=== PATIENT | male | born 1990 | race Caucasian/White ===

== ENCOUNTER 2018-02-16 13:48 | Emergency (ER) | payer OTHER ==
[~2018-02-16] VITALS: Ht 177.8 cm; Wt 70.3 kg
[~2018-02-16 13:48] MED LIST: CARAFATE1 GM/10 ML PO; INDOCIN25 MG PO; PEPCID 20MG TAB20 MG PO; PROTONIX 40MG T40 MG PO
[2018-02-16 13:56] VITALS: BP 124/85
--- NOTE | 2018-02-16 17:06 | ED UPPER/LOWER EXTREMITY COMPL ---
History of Present Illness General Chief Complaint: Laceration Procedure Stated Complaint: R INDEX FINGER LAC WORK INJURY Source: patient Exam Limitations: no limitations Vital Signs & Intake/Output Vital Signs & Intake/Output Vital Signs Date Time Temp Pulse Resp B/P B/P Pulse O2 O2 Flow FiO2 Mean Ox Delivery Rate 02/16 1356 97.8 91 18 124/85 96 Room Air Allergies Coded Allergies: NO KNOWN ALLERGIES (03/29/14) Reconcile Medications Famotidine (Pepcid 20MG Tab) 20 MG TAB 1 TAB PO BID GERD Indomethacin (Indocin) 25 MG CAP 1 TAB PO TID PERICARDITIS (HEART HEALTH) TAKE WITH MEALS Pantoprazole Sodium (Protonix) 40 MG TABLET.DR 1 TAB PO DAILY GASTRITIS Sucralfate (Carafate) 1 GRAM/10 ML ORAL.SUSP 10 ML PO TID STOMACH IRRITATION 1 hour before meals Triage Note: PT TO ER C/C 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 STATES LAST TETANUS > 10 YEARS AGO. DRESSING APPLIED, BLEEDING CONTROLLED Triage Nurses Notes Reviewed? yes Onset: Abrupt Duration: constant Timing: single episode today Severity: moderate Severity Numbers: 5 HPI: Patient is a 27-year-old male who presents emergency stating that while at work today he accidentally struck with an X-[employer] knife that this last active his right second digit index finger causing a laceration in which bleeding was controlled prior to arrival. (James Watkins) Past History Travel History Traveled to [place] past 21 day No Medical History Any Pertinent Medical History? none Surgical History Surgical History: non-contributory Psychosocial History Who do you live with Family What is your primary language Malawian Tobacco Use: Quit <30 days ago Family History Family History, If Any: No Known Family History. Hx Contributory? No (James Watkins) Review of Systems Review of Systems Constitutional: Reports: no symptoms. EENTM: Reports: no symptoms. Respiratory: Reports: no symptoms. Cardiovascular: Reports: no symptoms. Gastrointestinal/Abdominal: Reports: no symptoms. Genitourinary: Reports: no symptoms. Musculoskeletal: Reports: see HPI. Skin: Reports: see HPI. Neurological/Psychological: Reports: no symptoms. Hematologic/Endocrine: Reports: see HPI, bleeding. Immunological: Reports: no symptoms. All Other Systems: Reviewed and Negative (James Watkins) Physical Exam Physical Exam General Appearance: no apparent distress, alert, comfortable Head: atraumatic Eyes: Bilateral: normal appearance. Ears, Nose, Throat: hearing grossly normal Neck: normal inspection Cardiovascular/Respiratory: regular rate/rhythm Neurologic/Tendon: normal sensation, normal motor functions, normal tendon functions, responds to pain, no evidence tendon injury, no pulse deficit Skin: normal color, warm/dry Diagram Hands Front 1) 1 cm superficial linear flap laceration in a 90 angle Full active range of motion and resisted range of motion with flexion and extension no exposed bone no exposed tendon no concerns of tendon deficit (James Watkins) Progress Differential Diagnosis: arterial insufficiency, compartment syndrome, contusion, dislocation, DVT, fracture, gout, septic arthritis, sprain, tendon injury Plan of Care: Current Medications Sig/Victorina Start time Last Medication Dose Stop Time Status Admin Tetanus/Diphtheria 0.5 ML ONCE ONE 02/16 1715 AC Toxoids Adsorbed 02/17 1716 (Decavac) On examination patient was offered pain medications and declined. No concerns of tendon deficit fracture or foreign body, using sterile technique and Betadine 3 mL of 1% lidocaine was used for local anesthesia using approximately 360 mL of sterile water was then used for irrigation of the wound, then #3, 5-0 nonabsorbable sutures were placed to margins, margins were revised patient tolerated well bacitracin bandage was applied (James Watkins) Departure Departure Disposition: HOME OR SELF CARE Condition: Stable Clinical Impression Primary Impression: Laceration of finger of right hand Referrals: Leighann APARICIO,Samantha Russell (PCP/Family) Additional Instructions: As discussed begin to apply bacitracin to area 1 time a day for the following 4 days then leave the area open to improve healing. If you note signs infection redness, pain, swelling, discharge return to the emergency room. Return to emergency room in 7 days for suture removal. Departure Forms: Customer Survey General Discharge Information Industrial Accident Report (James Watkins) PA/ASSURANCE ENGINEER Co-Sign Statement Statement: ED Attending supervision documentation- [] I saw and evaluated the patient. I have also reviewed all the pertinent lab results and diagnostic results. I agree with the findings and the plan of care as documented in the PA's/ASSURANCE ENGINEER's documentation. [x] I have reviewed the ED Record and agree with the PA's/ASSURANCE ENGINEER's documentation. [] Additions or exceptions (if any) to the PAs/ASSURANCE ENGINEER's note and plan are summarized below: [] (Devaughn Reddy DO)
== END 2018-02-16 18:31 ==
LOC: ERH 13:48
DX: S61.210A Laceration without foreign body of right index finger without damage to nail, initial encounter (principal); W26.0XXA Contact with knife, initial encounter; Y92.89 Other specified places as the place of occurrence of the external cause; Y93.9 Activity, unspecified
CPT/HCPCS: 90471; J2001

== ENCOUNTER 2018-02-23 07:20 | Emergency (ER) | payer OTHER ==
[~2018-02-23] VITALS: Ht 177.8 cm; Wt 70.3 kg
[2018-02-23 07:23] VITALS: BP 128/73
--- NOTE | 2018-02-23 07:41 | ED GENERAL ADULT ---
History of Present Illness General Chief Complaint: Suture Removal/Wound Recheck Stated Complaint: SUTURE REMOVAL Source: patient Exam Limitations: no limitations Vital Signs & Intake/Output Vital Signs & Intake/Output Vital Signs Date Time Temp Pulse Resp B/P B/P Pulse O2 O2 Flow FiO2 Mean Ox Delivery Rate 02/23 0723 97.4 96 18 128/73 99 Room Air Allergies Coded Allergies: NO KNOWN ALLERGIES (03/29/14) Reconcile Medications Famotidine (Pepcid 20MG Tab) 20 MG TAB 1 TAB PO BID GERD Indomethacin (Indocin) 25 MG CAP 1 TAB PO TID PERICARDITIS (HEART HEALTH) TAKE WITH MEALS Pantoprazole Sodium (Protonix) 40 MG TABLET.DR 1 TAB PO DAILY GASTRITIS Sucralfate (Carafate) 1 GRAM/10 ML ORAL.SUSP 10 ML PO TID STOMACH IRRITATION 1 hour before meals Triage Note: PT HERE FOR SUTURE REMOVAL RIGHT POINTER FINGER. PT STATES SUTURES PLACED LAST WEDNESDAY Triage Nurses Notes Reviewed? yes HPI: Patient with recent sutures for laceration to the tip of the right second digit presents for suture removal. Wound healing well, no complaints. Tetanus updated at last visit. Past History Travel History Traveled to [place] past 21 day No Medical History Any Pertinent Medical History? none Tetanus Vaccine: 02/16/18 Surgical History Surgical History: non-contributory Psychosocial History Who do you live with Family What is your primary language Latvian Tobacco Use: Never used ETOH Use: denies use Illicit Drug Use: denies illicit drug use Family History Family History, If Any: No Known Family History. Hx Contributory? No Review of Systems Review of Systems Constitutional: Reports: no symptoms. Skin: Denies: change in skin color, erythema, lesions, rash. Physical Exam Physical Exam General Appearance: well developed/nourished, no apparent distress, alert, awake Comments: HEENT: Inspection of the head reveals a normocephalic cranium with no signs of trauma. Ophtho: Extraocular muscles are intact. The sclera are noninjected, and there is no obvious discharge. Neck: No signs of trauma or asymmetry to the neck. Respiratory: The patient exhibits no signs of labored breathing. Cardiac: Non-tachycardic. GI: No gross abdominal distention. : Deferred Extremities: Focused examination of the right second digit reveals well-healing lacerations to the pad of the distal phalanx. After suture removal was no wound dehiscence. No sign of infection. Neuro: The patient is oriented to person, place, time, and situation, with no obvious focal motor deficits. Cranial nerves II through XII are intact, and gait is normal. Behavioral: Calm and cooperative Dermatologic: Dermatologic examination reveals no obvious rashes or exanthems. Core Measures ACS in differential dx? No CVA/TIA Diagnosis: No Sepsis Present: No Sepsis Focused Exam Completed? No Progress Differential Diagnoses I considered the following diagnoses in my evaluation of the patient: Laceration Plan of Care: Sutures removed. Confirmed tetanus was updated at last visit. Instructed to follow-up with PCP as needed or return to the ED with any signs of infection. Initial ED EKG: none Comments: Discharged home in stable condition after suture removal. Departure Departure Time of Disposition: 739 Disposition: HOME OR SELF CARE Condition: Stable Clinical Impression Primary Impression: Visit for suture removal Referrals: Samantha Lawton MD (PCP/Family) Departure Forms: Customer Survey General Discharge Information Critical Care Note Critical Care Note Critical Care Time: non-applicable
== END 2018-02-23 07:41 ==
LOC: ERH 07:20
DX: Z48.02 Encounter for removal of sutures (principal)